=== PATIENT | female | born 1945 | race Caucasian/White ===

== ENCOUNTER 2021-06-03 11:13 | Emergency (ER) | payer OTHER ==
--- OUTSIDE RECORDS SUMMARY | 2021-06-03 11:15 | XMS REPORT | Continuity of Care Document ---
:1945 Author Organization [facility] t Address [address] [place] [address] Care Team Providers Name Role Phone JASON_T Attending Clinician Unavailable Nurse, Pob Immunization Attending Clinician Unavailable Zheng Orta DO Attending Clinician JASON_Toni Admitting Clinician Unavailable Payers Payer Name Policy Type Policy Number Effective Date Expiration Date [employer] - [id number] 2019 [facility] 00:00:00 (MEDICARE REPLACEMENT/[employer] GE - HMO) Problems This patient has no known problems. Allergies, Adverse Reactions, Alerts Allergy Allergy Status Severity Reaction(s) Onset Inactive Treating Comm ents Source Name Type Date Date Clinician hydrocod DA Active MO 2018-04 [facility] [place] No Known DA Active U 2001-04 [facility] Contrast 05-22 [facility] [place] No Known DA Active U 2001-04 [facility] Drug 05-22 [facility] [place] No Known DA Active U 2001-04 [facility] Food - [facility] [place] No Known DA Active U 2001-04 [facility] Other - [facility] [place] Social History Social Habit Start Date Stop Date Quantity Comments Source Sex Assigned At [birth year] [facility] 00:00:00 00:00:00 [facility] Smoking Status Start Date Stop Date Source Unknown if ever smoked [facility] Medications This patient has no known medications. Immunizations Ordered Filled Immunization Date Status Comments Sour e Immunization Name Name SARS-COV-2 COVID-19 2021-01-03 Completed [facility] 00:00:00 [facility] SARS-COV-2 COVID-19 2020-06-30 Completed [facility] VACCINE 00:00:00 [facility] SARS-COV-2 COVID-19 2020-06-02 Completed [facility] VACCINE 00:00:00 [facility] Procedures Procedure Date / Time Performed Performing Clinician [facility] jesica SARS-COV-2 COVID-19 2021-01-03 13:08:03 Doctor Unassigned, No [facility] [place] VACCINE,0.5ML,IM Name [facility] ([facility] Encounters Start End Encounter Admission Attending Care Care Encounter Source Date/Time Date/Time Type Type Clinicians Facility Department ID 2021-05-16 2021-05-16 Outpatient KOVACEV_T [facility] [id number]- [place] 05:08:00 05:08:00 [facility] 2021-01-03 2021-01-03 Imm/Inj Nurse, Elle Pob Immunization [facility] [place] [id number] [facility] 08:06:11 08:06:23 Visit Timi Orta [id number] [facility] [id number] Vitaliy Chandler [id number] [address] 2020-04-21 2020-04-21 Outpatient [facility]T [facility] [id number]- [id number] [place] 01:02:00 01:02:00 [facility] Results Test Description Test Time Test Comments Results Result Comments Source OVARY W/WO 2019-02-14 TUBE,NON-NEOPLASTIC 15:02:00 --RUN DATE: 02/14/19 [facility] PAGE 1 RUN TIME: 1654 Specimen Inquiry RUN USER: INTERFACE --PATIENT: SAURABH MCCLELLAN LOC: [facility] #: [id number] AGE/SX: 73/F [facility] RE02/13/19REG DR: Leon Reyes MD : 43 BED: A DIS: 02/14/19 STATUS: DIS Flip TLOC: -- SPEC #: [id number] RECD: 02/13/19 STATUS: PHONG RE #: [id number] FUNMILAYO: 02/13/19- SUBM DR: Leon Reyes MD ENTERED: 02/13/19 SP TYPE: SULEIMAN GOMEZ DR: ORDERED: LEVEL IV CODES: [id number] - OVARY, NOS PROCEDURES: LEVEL IV (Incomplete) TISSUES: OVARY, NOS - CYST WALL CLINICAL HISTORY 73 year old, 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 The specimen consists of a 0.5 cm red tissue and is submitted in A1. hz/wpd 02/13/19 @ 1630 ------ Signed Cecilia Mclaughlin MD 02/14/19 1502 -- END OF REPORT CHEMISTRY 7 PROFILE 2019-02-14 05:42:00 Test Item Value Reference Range Interpretation Comme nts SODIUM (test code = NA) 142 mEq/L 135-145 N POTASSIUM (test code = K) 3.4 mEq/L 3.5-5.0 L CHLORIDE (test code = CL) 105 mEq/L 100-115 N CARBON DIOXIDE (test code = CO2) 29 mEq/L 22-31 N ANION GAP (test code = GAP) 11.30 10-20 N GLUCOSE (test code = GLU) 166 mg/dL 65-110 H BLOOD UREA NITROGEN (test code = BUN) 20 mg/dL 7-18 H GLOMERULAR FILTRATION RATE (test code = GFR) 82 ml/min >60 N CREATININE (test code = CREAT) 0.7 mg/dL 0.5-1.0 N CALCIUM (test code = CA) 8.1 mg/dL 8.4-10.2 L HGB [id number] 05:12:00 Test Item Value Reference Range Interpretation Comments HEMOGLOBIN (test code = HGB) 11.6 g/dL 10.7-13.9 N HEMATOCRIT (test code = HCT) 35.4 % 32.1-42.1 N CHEMISTRY 7 [id number] 14:49:00 Test Item Value Reference Range Interpretation Comments SODIUM (test code = NA) 138 mEq/L 135-145 N POTASSIUM (test code = K) 3.7 mEq/L 3.5-5.0 N CHLORIDE (test code = CL) 100 mEq/L 100-115 N CARBON DIOXIDE (test code = CO2) 28 mEq/L 22-31 N ANION GAP (test code = GAP) 13.70 10-20 N GLUCOSE (test code = GLU) 93 mg/dL 65-110 N BLOOD UREA NITROGEN (test code = 24 mg/dL 7-18 H BUN) GLOMERULAR FILTRATION RATE (test 70 ml/min >60 N code = GFR) CREATININE (test code = CREAT) 0.8 mg/dL 0.5-1.0 N CALCIUM (test code = CA) 9.6 mg/dL 8.4-10.2 N URINALYSIS [id number] 14:39:00 Test Item Value Reference Range Interpretation Comments UA COLOR (test code = COLU) YELLOW YELLOW UA APPEARANCE (test code = Slightly-Cloudy CLEAR APPU) UA GLUCOSE DIPSTICK (test NEGATIVE NEG code = DGLUU) UA BILIRUBIN DIPSTICK (test NEGATIVE NEG code = BILU) UA KETONE DIPSTICK (test code NEGATIVE NEG = KETU) UA SPECIFIC GRAVITY (test 1.006 1.001-1.035 N code = SGU) UA BLOOD DIPSTICK (test code NEG NEG = MAYURI) UA PH DIPSTICK (test code = 5.0 5-9 ANT) UA PROTEIN DIPSTICK (test NEGATIVE NEG code = PROU) UA UROBILINIOGEN DIPSTICK NEGATIVE mg/dL NEG (test code = URO) UA NITRITE DIPSTICK (test NEG NEG code = JACINTA) UA LEUKOCYTE ESTERASE NEG NEG DIPSTICK (test code = LEUU) UA WBC (test code = WBCU) 0-2 #/hpf NONE SEEN UA RBC (test code = RBCU) 0-2 #/hpf NONE SEEN UA EPITHELIAL CELLS (test FEW #/HPF RARE-FEW code = EPIU) UA BACTERIA (test code = RARE /HPF RARE-FEW BACU) UA MUCUS (test code = MUCU) RARE NONE SEEN Comments to Shafting Worker: .URINE SAMPLE: CLEAN CATCHCBC W/AUTO [id number] 14:31:00 Test Item Value Reference Range Interpretation Comments WHITE BLOOD CELL (test code = WBC) 5.2 K/mm3 6.6-12.1 L RED BLOOD CELL (test code = RBC) 4.86 M/mm3 3.45-5.01 N HEMOGLOBIN (test code = HGB) 14.3 g/dL 10.7-13.9 H HEMATOCRIT (test code = HCT) 43.9 % 32.1-42.1 H MEAN CELL VOLUME (test code = MCV) 90 fL 84.1-94.8 N MEAN CELL HGB (test code = MCH) 29.4 pg 27-35 N MEAN CELL HGB CONCETRATION (test 32.6 gm/dL 32.2-34.1 N code = MCHC) RED CELL DISTRIBUTION WIDTH (test 12.2 % 12.4-16.5 L code = RDW) PLATELET COUNT (test code = PLT) 238 K/mm3 133-385 N IMMATURE PLATELET FRACTION (test 0.0 % 0.0-10.8 N code = IPF) MEAN PLATELET VOLUME (test code = 11.4 fl 9.1-12.7 N MPV) NEUTROPHIL % (test code = NT%) 47.7 % 56.5-79.4 L LYMPHOCYTE % (test code = LY%) 37.5 % 14.3-34.3 H MONOCYTE % (test code = MO%) 11.3 % 5.1-10.4 H EOSINOPHIL % (test code = EO%) 2.7 % 0.1-3.0 N BASOPHIL % (test code = BA%) 0.6 % 0.1-1.0 N NEUTROPHIL # (test code = NT#) 2.5 K/mm3 LYMPHOCYTE # (test code = LY#) 2.0 K/mm3 MONOCYTE # (test code = MO#) 0.6 K/mm3 EOSINOPHIL # (test code = EO#) 0.14 K/mm3 BASOPHIL # (test code = BA#) 0.0 K/mm3 RBC MORPHOLOGY REQUIRED (test code NORMAL NORMAL = RBCM) PLATELET MORPHOLOGY REQUIRED (test NORMAL NORMAL code = PLTMR) - XR CHEST 2 [id number] 13:56:00 Patient Name: SAURABH MCCLELLAN Unit No: [id number] EXAMS: CPT CODE: [id number] XR CHEST 2 V 44630 CHEST RADIOGRAPHS - PA AND LATERAL: COMPARISON: None CLINICAL HISTORY: PREOP The cardiopericardial silhouette is within normal limits. No acute infiltrates are seen. Small calcified granuloma noted in the right lower lobe. No vascular congestion or pneumothorax. There are spondylotic changes in the lower thoracic spine. IMPRESSION: No acute pulmonary abnormality. at 1356 Reported and signed by: Fabio Starks MD CC: Leon Reyes MD Technologist: Aisha Mo, RT(MRI) Trnscrbd D/ (7745) [email or web address] Orig Print D/T: S: 01/24/2019 (1400) [facility] NAME: SAURABH MCCLELLAN Radiology Department PHYS: Leon Zhang MD [address] : 1945 AGE: 73 SEX: F [place], [place] [address] LOC: JANI PHONE #: [phone] EXAM DATE: 01/24/2019 STATUS: PRE [facility] FAX #: [phone] RAD NO: Page 1 Signed Report
[2021-06-03 12:17] LABS: Absolute Lymphocytes (CBC) 1.1 K/uL (0.7-4.9); Hematocrit 42.4 % (36.0-45.0); Lymphocytes % 12.6 % (15.3-44.8); MPV 8.5 fL (7.6-11.3); RBC Red Blood Cell Count 4.82 M/uL (3.86-4.86)
[2021-06-03] MEDS ORDERED: MORPHINE 4 MG/ML SYR ONE ×2 (12:22→13:35)
[2021-06-03] MEDS ORDERED: ONDANSETRON 4 MG/2 ML VIAL ONE (12:22)
[2021-06-03] MEDS ORDERED: NA CHLORIDE 0.9% 500 ML ONE (12:22)
[2021-06-03 12:36] LABS: BUN Blood Urea Nitrogen 24 mg/dL (7-18); Bicarbonate 30 mmol/L (21-32); Glucose Level 121 mg/dL (74-106); Potassium 3.3 mmol/L (3.5-5.1); Sodium Level 142 mmol/L (136-145)
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
[2021-06-03] MEDS ORDERED: LIDOCAINE 4% PATCH ONE (14:40)
[2021-06-03 15:01] VITALS: BP 121/69; TEMP 98.4; O2SAT 100
== END 2021-06-03 14:56 | disposition home or self-care (01) ==
LOC: ER 11:13
DX: S29.019A Strain of muscle and tendon of unspecified wall of thorax, initial encounter (principal); V49.49XA Driver injured in collision with other motor vehicles in traffic accident, initial encounter; I10 Essential (primary) hypertension; Z88.5 Allergy status to narcotic agent
CPT/HCPCS: 85025; 80048; 36415; 86900; 86850; 82565; 86901; 70450; 72125; 71260; 74177; J7040; J2405; 96361; 96374; 96375; 99284

== ENCOUNTER 2022-07-03 07:45 | Day surgery (SDC) | payer OTHER ==
[2022-07-01 10:24] LABS: Potassium 3.7 mmol/L (3.5-5.1)
--- NOTE | 2022-07-01 13:01 | EKG ---
Test Date: 2022-07-01 Test Time: 09:32:35 Air Conditioning Specialist: MATHEW MEASUREMENT RESULTS: Intervals: Rate: 70 IA: 174 QRSD: 96 QT: 398 QTc: 429 [place]: P: 80 IA: 174 QRS: -63 T: 69 INTERPRETIVE STATEMENTS: Normal sinus rhythm Pulmonary disease pattern Left anterior fascicular block Abnormal ECG Compared to ECG 11/30/2015 11:17:44 Left ventricular hypertrophy no longer present Electronically Signed On 07-01-22 13:01:09 TRANSIT DEPARTMENT CLERK by Lenard Robertson
[2022-07-03] MEDS ORDERED: Ringers Lactate 1,000 ML IV ONE (07:57)
[2022-07-03] MEDS ORDERED: propofoL 200 MG/20 ML VIAL IV ONE (09:40)
[2022-07-03] MEDS ORDERED: LIDOCAINE 1% MPF 5 ML VIAL ONE (09:40)
[2022-07-03] MEDS ORDERED: GLUCAGON 1 MG/VIAL ONE (10:59)
[2022-07-03 11:52] VITALS: TEMP 98.2
[2022-07-03 11:54] VITALS: BP 117/68; O2SAT 95
== END 2022-07-03 11:40 | disposition home or self-care (01) ==
LOC: OR 07:45
PROVIDERS: ATTEND Surgery
PROC: 0DBN8ZX Excision of Sigmoid Colon, Via Natural or Artificial Opening Endoscopic, Diagnostic (ICD-10-PCS; 2022-07-03)
PROC: 0DBF8ZX Excision of Right Large Intestine, Via Natural or Artificial Opening Endoscopic, Diagnostic (ICD-10-PCS; 2022-07-03)
PROC: 0DBH8ZX Excision of Cecum, Via Natural or Artificial Opening Endoscopic, Diagnostic (ICD-10-PCS; principal; 2022-07-03 10:15)
DX: Z12.11 Encounter for screening for malignant neoplasm of colon (principal); Z86.010 Personal history of colon polyps; D12.0 Benign neoplasm of cecum; D12.2 Benign neoplasm of ascending colon; D12.5 Benign neoplasm of sigmoid colon
CPT/HCPCS: 36415; 80048; 88305; 93005; J1610; J2001; J2704; J7120

== ENCOUNTER 2023-10-20 15:29 | Emergency (ER) | payer OTHER ==
--- NOTE | 2023-10-20 16:18 | EDPHYS ---
Physician Documentation [facility] Name: Uma Miner Age: 78 yrs Sex: Female : 1945 Arrival Date: 10/20/2023 Time: 15:29 Bed 9 Private MD: ED Physician Fili Patterson HPI: 10/19 18:02 This 78 yrs old Female presents to ER via Ambulatory with complaints of Pain. kb 18:02 Pt is a 78 year old female who presents for left low back pain that radiates down kb buttock and leg. States pain started 4 months ago and the medications she has been given wasn't working today. States she has a follow up appt with her back dr on Wednesday, but came to see if she could get something for the pain until then. Reports Dr Bob has given her back injections in the past that helped, but the last one didn't have the same effect so that is why she was referred to a back dr. Denies injury or trauma. Denies urinary symptoms. States pain is better when she bends her leg with knee to chest. Historical: - Allergies: 16:17 No Known Allergies; tl4 - PMHx: 16:17 Anxiety; Hypercholesterolemia; Hypertensive disorder; tl4 - Immunization history:: Adult Immunizations unknown. - Infectious Disease History:: Denies. - Social history:: Smoking status: Patient denies any tobacco usage or history of. ROS: 18:04 Constitutional: As per HPI kb Exam: 18:04 Constitutional: This is a well developed, well nourished patient who is awake, alert, kb and in no acute distress. Head/Face: Normocephalic, atraumatic. ENT: Moist Mucous membranes Cardiovascular: Regular rate Respiratory: Respirations even and unlabored. No increased work of breathing. Talking in full sentences Abdomen/GI: Soft, non-tender. No distention Skin: Warm, dry with normal turgor. Normal color. MS/ Extremity: Pulses equal, no cyanosis. Neurovascular intact. Full, normal range of motion. Neuro: Awake and alert, GCS 15, oriented to person, place, time, and situation. Moves all extremities. Normal gait. 18:04 Back: pain, that is mild, of the left low back, ROM is painful, normal spinal alignment noted, Vital Signs: 16:11 BP 143 / 92; Pulse 104; Resp 20; Temp 98.1; Pulse Ox 96% ; Weight 55.79 kg; Height 5 tl4 ft. 3 in. ; Pain 8/10; 16:11 Body Mass Index 21.79 (55.79 kg, 160.02 cm) tl4 16:11 Pain Scale: Adult tl4 MDM: 15:40 Patient medically screened. kb 18:05 Differential diagnosis: sciatica, strain. Data reviewed: vital signs, nurses notes. kb Test considered but Not performed: Labs: urinalysis considered but pt has no flank pain and denies urinary symptoms/fever. X-ray: x-ray considered but pt has no bony tenderness. Historians other than the Patient: Daughter/Son: son. Counseling: I had a detailed discussion with the patient and/or guardian regarding the historical points, exam findings, and any diagnostic results supporting the discharge/admit diagnosis, the need for outpatient follow up, a family practitioner, to return to the emergency department if symptoms worsen or persist or if there are any questions or concerns that arise at home. Administered Medications: 16:43 Drug: HYDROcodone-acetaminophen PO 5 mg-325 mg 1 tabs PO once Route: PO; as6 16:49 Follow up: Response: No adverse reaction as6 16:43 Drug: predniSONE PO 20 mg PO once Route: PO; as6 16:49 Follow up: Response: No adverse reaction as6 Disposition Summary: 10/20/23 16:18 Discharge Ordered Notes: Location: Home kb Condition: Stable kb Diagnosis - Sciatica, left side kb Followup: kb - With: Emergency Department - When: As needed - Reason: Worsening of condition Followup: kb - With: Private Physician - When: 2 - 3 days - Reason: Recheck today's complaints, Continuance of care, Re-evaluation by your physician Discharge Instructions: - Discharge Summary Sheet kb - Sciatica, [id number] kb - Back Exercises, [id number] kb Forms: - Medication Reconciliation Form kb - Antibiotic Education kb - Prescription Opioid Use kb - Patient Portal Instructions kb - Leadership Thank You Letter kb Prescriptions: - Prednisone 20 mg Oral Tablet - take 1 tablet ORAL route once daily for 5 days; 5 tablet; Refills: 0, Product kb Selection Permitted - orphenadrine citrate 100 mg Oral Tablet Sustained Release - take 1 tablet ORAL route 2 times per day As needed; 20 tablet; Refills: 0, kb Product Selection Permitted Signatures: Sherlyn Mendoza, Vamsi Pickett RN RN as6 Tigre Connor RN RN tl4 Corrections: (The following items were deleted from the chart) 16:17 16:17 Allergies: Hydrocodone-Acetaminophen; tl4 tl4 18:05 18:02 Pt is a 78 year old female who presents for left low back pain that radiates down kb buttock and leg. States pain started 4 months ago and the medications she has been given wasn't working today. States she has a follow up appt with her back dr on Wednesday, but came to see if she could get something for the pain until then. Reports Dr Bob has given her back injections in the past that helped, but the last one didn't have the same effect so that is why she was referred to a back dr. Denies injury or trauma. . kb
--- NOTE | 2023-10-20 16:18 | ER ---
Nurse's Notes [facility] Name: Uma Miner Age: 78 yrs Sex: Female : 1945 Arrival Date: 10/20/2023 Time: 15:29 Bed 9 Private MD: Diagnosis: Sciatica, left side Presentation: 10/19 16:11 Chief complaint: Patient states: Pt c/o left leg pain that is relieved with bending her tl4 leg. Pt denies injury. Coronavirus screen: At this time, the client does not indicate any symptoms associated with coronavirus-19. Ebola Screen: No symptoms or risks identified at this time. Initial Sepsis Screen: Does the patient meet any 2 criteria? Yes Does the patient have a suspected source of infection? No. Patient's initial sepsis screen is negative. Risk Assessment: Do you want to hurt yourself or someone else? Patient reports no desire to harm self or others. Onset of symptoms was September 2023. 16:11 Method Of Arrival: Ambulatory tl4 16:11 Acuity: NICK 4 tl4 Triage Assessment: 16:17 General: Appears uncomfortable, Behavior is cooperative. Pain: Complains of pain in tl4 left leg. EENT: No signs and/or symptoms were reported regarding the EENT system. Neuro: Level of Consciousness is awake, alert, obeys commands, Oriented to person, place, time, situation, Moves all extremities. Full function Gait is steady. Cardiovascular: Capillary refill < 3 seconds Patient's skin is warm and dry. Respiratory: Airway is patent Respiratory effort is even, unlabored, Respiratory pattern is regular, symmetrical. GI: No signs and/or symptoms were reported involving the gastrointestinal system. : No signs and/or symptoms were reported regarding the genitourinary system. Derm: No signs and/or symptoms reported regarding the dermatologic system. Musculoskeletal: No signs and/or symptoms reported regarding the musculoskeletal system. Historical: - Allergies: 16:17 No Known Allergies; tl4 - PMHx: 16:17 Anxiety; Hypercholesterolemia; Hypertensive disorder; tl4 - Immunization history:: Adult Immunizations unknown. - Infectious Disease History:: Denies. - Social history:: Smoking status: Patient denies any tobacco usage or history of. Screenin:43 [facility] ED Fall Risk Assessment (Adult) History of falling in the last 3 months, as6 including since admission No falls in past 3 months (0 pts) Confusion or Disorientation No (0 pts) Intoxicated or Sedated No (0 pts) Impaired Gait No (0 pts) Mobility Assist Device Used No (0 pt) Altered Elimination No (0 pt) Score/Fall Risk Level 0 - 2 = Low Risk Oriented to surroundings, Maintained a safe environment, Educated pt \T\ family on fall prevention, incl call for assistance when getting out of bed, Assessed \T\ reinforced patient's understanding of fall precautions. Abuse screen: Denies threats or abuse. Denies injuries from another. Nutritional screening: No deficits noted. Tuberculosis screening: No symptoms or risk factors identified. Assessment: 16:49 Reassessment: Patient appears in no apparent distress at this time. Patient states as6 feeling better. Vital Signs: 16:11 BP 143 / 92; Pulse 104; Resp 20; Temp 98.1; Pulse Ox 96% ; Weight 55.79 kg; Height 5 tl4 ft. 3 in. ; Pain 8/10; 16:11 Body Mass Index 21.79 (55.79 kg, 160.02 cm) tl4 16:11 Pain Scale: Adult tl4 ED Course: 15:35 Patient arrived in ED. mg5 15:40 Sherlyn Mendoza FNP-C [facility]. kb 15:40 Fili Patterson MD is Attending Physician. kb 16:17 Triage completed. tl4 16:18 Arm band placed on right wrist. tl4 16:24 Vamsi Gonzalez, RN is Primary Nurse. as6 16:44 Bed in low position. Call light in reach. Side rails up X 1. Provided Education on: rx as6 teaching . 16:44 No provider procedures requiring assistance completed. Patient did not have IV access as6 during this emergency room visit. Administered Medications: 16:43 Drug: HYDROcodone-acetaminophen PO 5 mg-325 mg 1 tabs PO once Route: PO; as6 16:49 Follow up: Response: No adverse reaction as6 16:43 Drug: predniSONE PO 20 mg PO once Route: PO; as6 16:49 Follow up: Response: No adverse reaction as6 Medication: 16:44 VIS not applicable for this client. as6 Outcome: 16:18 Discharge ordered by . kb 16:44 Discharged to home ambulatory, with family, as6 16:44 Condition: stable 16:44 Discharge instructions given to patient, Instructed on discharge instructions, follow up and referral plans. medication usage, Demonstrated understanding of instructions, follow-up care, medications, Prescriptions given X 2, 16:50 Patient left the ED. as6 Signatures: Sherlyn Mendoza, MAGNETIC RESONANCE IMAGING DIRECTOR-C MAGNETIC RESONANCE IMAGING DIRECTOR-Vamsi Davies RN RN as6 Haley Reaves mg5 Tigre Connor RN RN tl4 Corrections: (The following items were deleted from the chart) 16:17 16:17 Allergies: Hydrocodone-Acetaminophen; tl4 tl4
[2023-10-20] MEDS ORDERED: predniSONE 20 MG TAB ONE (16:24)
[2023-10-20] MEDS ORDERED: HYDROCODONE/APAP 5/325 MG TAB ONE (16:25)
[2023-10-20 17:21] VITALS: BP 143/92; TEMP 98.1; O2SAT 96
== END 2023-10-20 16:50 | disposition home or self-care (01) ==
LOC: ER 15:29
DX: M54.32 Sciatica, left side (principal)
CPT/HCPCS: 99283; J7512